=== PATIENT | female | born 1945 | race Caucasian/White ===

== ENCOUNTER 2020-02-01 19:11 | Inpatient (IN) | payer OTHER, BC ==
[~2020-02-01] VITALS: Ht 167.6 cm; Wt 67.1 kg
[~2020-02-01 19:11] MED LIST: ASPIR 8181 MG PO; BENADRYL25 MG PO; COQ-10100 MG PO; COREG6.25 MG PO; ESTRIOL100 GM MC; FISH OIL 1,001000 M2 PO; GLUCOSAMINE HC500 MG PO; IBUPROFEN 200200 M1 PO; LIPITOR 20 MG T20 M1 PO; MUCINEX600 MG PO; NITROGLYCERIN0.4 MG SUBLING; PEPCID20 MG PO; TYLENOL325 MG PO; UNICOMPLEX M TA1 TA1 PO; VITAMIN D1000 UNI1 PO; [UNRECOGNIZED DRUG - OTHER] DT; [UNRECOGNIZED DRUG - OTHER] MC
[2020-02-01 19:19] VITALS: BP 171/85
[2020-02-01] MEDS ORDERED: ZETIA10 MG PO (20:47)
[2020-02-01] MEDS ORDERED: LEVALBUTEROL TA15 GM INH (20:49)
[2020-02-01] MEDS ORDERED: TESSALON PERLE100 M1 PO (20:49)
[2020-02-01] MEDS ORDERED: PULMICORT0.25 MG/2 (20:49)
[2020-02-01] MEDS ORDERED: PLAQUENIL200 MG PO (20:50)
[2020-02-01] MEDS ORDERED: DEXAMETHASONE 22 M1 PO (20:50)
[2020-02-01] MEDS ORDERED: FLONASE 0.05%50 MCG NASAL (20:51)
[2020-02-01 21:09] LABS: ABSOLUTE NEUTROPHILS 9.9 thou/uL (1.4-8.2); BASOPHILS 0.1 % (0.0-2.0); HEMATOCRIT 38.4 % (37.0-47.0); HEMOGLOBIN 13.1 gm/dL (12.0-15.0); LYMPHOCYTES 3.6 % (24.0-44.0); MCH 32.3 pg (26.0-34.0); MONOCYTES 5.7 % (1.0-8.0); PLATELET COUNT 255 thou/uL (150-400); POLYS 90.6 % (36.0-66.0); RBC 4.04 mil/uL (4.20-5.00); RDW 12.3 % (10.5-14.5); WBC 10.9 thou/uL (4.0-11.0)
[2020-02-01 21:13] LABS: CALCIUM 9.1 mg/dL (8.5-10.1); CREATININE 0.9 mg/dL (0.6-1.0); POTASSIUM 3.9 mmol/L (3.5-5.1)
[2020-02-01 23:18] VITALS: BP 158/76
[2020-02-01 23:44] VITALS: BP 162/70
[2020-02-02] MEDS ORDERED: XIIDRA1 EACH OPHTHALMIC (00:25)
[2020-02-02] MEDS ORDERED: COQ-10100 MG PO (00:34)
[2020-02-02 00:41] VITALS: BP 153/77
[2020-02-02 03:45] VITALS: BP 119/68
[2020-02-02 06:29] LABS: HEMATOCRIT 36.8 % (37.0-47.0); HEMOGLOBIN 12.1 gm/dL (12.0-15.0); MCH 31.7 pg (26.0-34.0); MCV 96.1 fL (80.0-100.0); RBC 3.82 mil/uL (4.20-5.00); RDW 12.6 % (10.5-14.5); WBC 11.5 thou/uL (4.0-11.0)
[2020-02-02 06:40] LABS: CALCIUM 8.7 mg/dL (8.5-10.1); CREATININE 0.8 mg/dL (0.6-1.0); POTASSIUM 4.2 mmol/L (3.5-5.1)
[2020-02-02 07:15] VITALS: BP 139/67
--- NOTE | 2020-02-02 07:42 | NUR ---
PT ARRIVED FROM ER VIA CART, PLACED IN ROOM 349. ADMISSION ASSESSMENTS COMPLETED. SEE CHARTING. THIS AM PT REPORTING THAT HER FACE FEELS FLUSHED AND APPEARS MORE RED TO HER. VSS, SLIGHT INCREASED REDNESS NOTED TO BOTH PTS CHEEKS NOTED. PT ENCOURAGED TO CALL WITH ANY SOA, CHEST DISCOMFORT OR PAIN. CONTINUE TO MONITOR.
--- NOTE | 2020-02-02 14:45 | NUR ---
PT ASSESSED AT START OF SHIFT. STATES FEELING SOME BETTER. TRYING TO SIT UP IN THE CHAIR MUCH POSSIBLE. ANTIBIOTIC CHANGED TO LEVAQUIN PT FELT SHE REACTED TO [place]. NO PROBLEMS W/ LEVAQUIN. OCC DRY COUGH. EATING AND DRINKING WELL.
[2020-02-02 15:02] VITALS: BP 157/66
[2020-02-02 19:45] VITALS: BP 143/76
--- NOTE | 2020-02-02 22:31 | NUR ---
Care assumed of patient at 1915: Patient seated in chair in her room at start of shift. Remains on isolation for Covid +. Elevated temp of 100.1, given PRN Tylenol, reduced fever. Non-productive cough observed. Requested PRN Benzonatate, medication given and helpful. Lungs diminished to bilateral lobes. Alert and oriented x4, pleasant and cooperative. Reports SOB upon exertion. Able to drink 240cc water and eat 100% HS snack with no SOB. Requested PRN Melatonin to assist with sleep. Patient laying quietly in bed at this time.
[2020-02-03 04:12] VITALS: BP 155/92
[2020-02-03 06:51] LABS: ABSOLUTE NEUTROPHILS 8.9 thou/uL (1.4-8.2); BASOPHILS 0.1 % (0.0-2.0); EOSINOPHILS 0.1 % (0.0-3.0); HEMOGLOBIN 11.8 gm/dL (12.0-15.0); LYMPHOCYTES 5.8 % (24.0-44.0); MCH 32.1 pg (26.0-34.0); MCHC 33.7 g/dL (28.0-37.0); MCV 95.3 fL (80.0-100.0); PLATELET COUNT 242 thou/uL (150-400); RBC 3.67 mil/uL (4.20-5.00); RDW 12.6 % (10.5-14.5); WBC 10.1 thou/uL (4.0-11.0)
[2020-02-03 07:15] VITALS: BP 145/90
[2020-02-03] MEDS ORDERED: LEVOFLOXACIN750 MG PO (09:12)
[2020-02-03 11:06] VITALS: BP 144/80
[2020-02-03 15:31] VITALS: BP 113/64
--- NOTE | 2020-02-03 16:21 | NUR ---
INITIAL ASSESSMENT/DISCHARGE NOTE: NELSON reviewed chart and spoke with nursing and attending physician. Pt remains in Enhanced Isolation due to COVID-19. Discharge orders/summary completed this morning. Pt states she would like to speak with ID physician prior to discharge. NELSON placed call to pt's room multiple times today. No answer. Per chart, pt is alert/orientated x 4. Pt lives at home in [place]. Pt in [place] area due to affiliation with the [facility]. No discharge needs anticipated. SW is available to assist should needs arise.
--- NOTE | 2020-02-03 18:01 | NUR ---
ASSUMED PATIENT CARE AT 0700. A/O X4. PLEASANT. LOW GRADE TEMP. UP AD MAC. PROGRESSING TOWARDS POC GOALS.
[2020-02-03 20:10] VITALS: BP 136/58
[2020-02-04 05:06] VITALS: BP 168/85
--- NOTE | 2020-02-04 05:54 | NUR ---
PT MAKING POOR PROGRESS TOWARDS GOALS. SPOKE WITH I.D. PHYSICIAN LAST NIGHT. HE STATED HE WAS OK WITH HER BEING DISCHARGED TOMORROW IF SHE WAS AFEBRILE THROUGHOUT THE NIGHT. UPON INITIAL ASSESSMENT PT HAD ORAL TEMP OF 99.4. TYLENOL GIVEN AT HS. APPROXIMATELY MIDNIGHT, PT HAD ORAL TEMP OF 99.5. THIS AM, PT TEMPT 101.5 ORALLY. WILL PASS THIS ON IN REPORT AND CONTINUE TO GIVE TYLENOL PER ORDERS.
[2020-02-04 07:10] VITALS: BP 156/90
[2020-02-04 08:05] LABS: ABSOLUTE NEUTROPHILS 7.7 thou/uL (1.4-8.2); BASOPHILS 0.3 % (0.0-2.0); EOSINOPHILS 0.1 % (0.0-3.0); HEMATOCRIT 36.7 % (37.0-47.0); HEMOGLOBIN 12.5 gm/dL (12.0-15.0); LYMPHOCYTES 6.5 % (24.0-44.0); MCH 32.7 pg (26.0-34.0); MCV 96.2 fL (80.0-100.0); MONOCYTES 7.5 % (1.0-8.0); POLYS 85.6 % (36.0-66.0); RBC 3.81 mil/uL (4.20-5.00); RDW 12.6 % (10.5-14.5)
[2020-02-04 08:19] LABS: ALBUMIN 3.3 g/dL (3.4-5.0); CREATININE 0.9 mg/dL (0.6-1.0); MAGNESIUM 2.2 mg/dL (1.8-2.4); POTASSIUM 4.2 mmol/L (3.5-5.1); TOTAL BILIRUBIN 0.4 mg/dL (0.2-1.0); TOTAL PROTEIN 7.4 g/dL (6.4-8.2)
[2020-02-04 10:01] LABS: PLATELET COUNT 216 thou/uL (150-400)
[2020-02-04 11:07] VITALS: BP 124/69
[2020-02-04 15:33] VITALS: BP 122/68
--- NOTE | 2020-02-04 15:34 | NUR ---
PATIENT AFEBRILE. PROGRESSING TOWARDS POC GOALS.
[2020-02-04 15:36] VITALS: BP 122/68
[2020-02-04 20:37] VITALS: BP 158/88
--- NOTE | 2020-02-05 04:12 | NUR ---
2 liters o2 through the night. o2 sats at bedtime 89%. up walking to the restroom,independant. denies pain. cheerful up eileen mood tonight. has been resting since 2199.
[2020-02-05 06:01] VITALS: BP 144/81
[2020-02-05 07:20] VITALS: BP 143/82
[2020-02-05 11:07] VITALS: BP 112/63
[2020-02-05 15:03] VITALS: BP 134/74
[2020-02-05 16:08] VITALS: BP 130/68
[2020-02-05 19:52] VITALS: BP 141/80
[2020-02-06 04:34] VITALS: BP 144/75
--- NOTE | 2020-02-06 05:21 | NUR ---
Pt. stated she slept well during the night with 1L/NC. Tolerating room air well and only requested for 1L/NC last night stating she desats when sleeping. She has been afebrile.Up ad kaiden in room with steady gait.Making progress towards care plan goals.
[2020-02-06 07:34] VITALS: BP 121/97
[2020-02-06 11:19] VITALS: BP 134/75
[2020-02-06 12:00] VITALS: BP 122/68
[2020-02-06 12:09] VITALS: BP 122/68
--- NOTE | 2020-02-06 12:09 | NUR ---
DISCHARGE NOTE: NELSON reviewed chart and spoke with nursing and attending physician. Pt is medically stable for discharge home today with HH and Home O2. NELSON spoke with pt via phone. Introduced role of SW. Pt is alert/orientated x 4. Pt states she is in the area for several more weeks, and then will be returing to [place]. Prior to admission, pt was independent with ADLs. Pt states she had an outpt sleep study in [place] about a year ago to qualify for a cpap. Pt has a cpap at home, but does not use it. Rest/exercise oximetry completed and pt's O2 sat drops to 89% with activity. Pt states she would like O2. Options provided for Home O2 and HH agency. No preference voiced. SW chose providers who are national and have offices both in and [place] ([facility] and [facility]). NELSON discussed with [facility] liaison, who states that with pt's COVID dx, she will qualify for home O2. NELSON faxed clinical info to [facility] for review. Awaiting signed script from attending physician, then will fax to [facility]. NELSON faxed HH referral to [facility] and notified liaison of new referral. Pt's local address is: [address] [place] [address]. [address] [facility] [address]. Pt's cell: [phone]. Pt's PCP is Dr. Violet Lugo (Office: [phone]). Contact info for [facility] and [facility] placed in pt's discharge summary. Portable O2 already delivered. Pt's dtr will provide transportation home. No additional SW needs identified at this time, but is available to assist should needs arise.
[2020-02-06] MEDS ORDERED: PREDNISONE 20 M20 M1 PO (12:14)
[2020-02-06 12:21] VITALS: BP 122/68
[2020-02-06] MEDS ORDERED: OXYGEN MISCELL ×2 (15:36→15:54)
== END 2020-02-06 16:25 | disposition home health service (06) | DRG 177 ==
LOC: ER 19:11 → 3W 22:54 → EROBS 22:54 → 3W 23:45
PROVIDERS: Emergency Medicine; Internal Medicine; Nurse Practitioner Family; ADMIT Hospitalist; ATTEND Hospitalist
DX: U07.1 COVID-19 (principal); J12.9 Viral pneumonia, unspecified; I10 Essential (primary) hypertension; E78.5 Hyperlipidemia, unspecified; I25.10 Atherosclerotic heart disease of native coronary artery without angina pectoris; E03.9 Hypothyroidism, unspecified; E78.00 Pure hypercholesterolemia, unspecified; Z79.2 Long term (current) use of antibiotics; Z90.89 Acquired absence of other organs; Z90.710 Acquired absence of both cervix and uterus; Z79.82 Long term (current) use of aspirin; Z79.899 Other long term (current) drug therapy; Z88.5 Allergy status to narcotic agent; Z88.0 Allergy status to penicillin; Z91.041 Radiographic dye allergy status
CPT/HCPCS: 10879